=== PATIENT | female | born 1990 | race Caucasian/White ===

== ENCOUNTER 2019-11-24 11:06 | Emergency (ER) | END 2019-11-24 11:41 | disposition left against medical advice (07) | LOC: COL.ER 11:06 | DX: Z72.89 Other problems related to lifestyle (principal) ==

== ENCOUNTER 2022-02-15 04:15 | Emergency (ER) | payer OTHER, MEDICAID ==
[~2022-02-15] VITALS: Ht 154.9 cm; Wt 72.7 kg
[2022-02-15 04:28] VITALS: BP 141/90; PULSE 120
== END 2022-02-15 04:50 | disposition left against medical advice (07) ==
LOC: COL.ER 04:15
DX: K52.9 Noninfective gastroenteritis and colitis, unspecified (principal); F17.200 Nicotine dependence, unspecified, uncomplicated; Z98.51 Tubal ligation status